=== PATIENT | female | born 1995 | race Caucasian/White ===

== ENCOUNTER → 2016-07-29 | Outpatient (CLI) | payer BC, OTHER ==
--- NOTE | 2016-07-29 12:24 | DIAGNOSTIC IMAGING REPORT ---
FLUOROSCOPIC GUIDED RIGHT SHOULDER ARTHROGRAM FLUOROSCOPY TIME: 5 seconds. A single image submitted. HISTORY: Right shoulder pain.. PROCEDURE: After obtaining written informed consent, the patient was placed supine on the fluoroscopy table. A suitable site for needle insertion was marked using fluoroscopic guidance. The right shoulder was prepped and draped in the usual sterile fashion. 1% lidocaine was used for skin, subcutaneous and deep soft tissue anesthesia. Under intermittent fluoroscopic guidance, a 22 gauge 2.5 inch spinal needle was inserted into the right glenohumeral joint. A total of 14 cc of one-to-one mixture of dilute Magnevist (0.1 cc in 10 cc saline) and Optiray 300 were injected. The needle was then removed. There were no apparent complications. The patient was transported to for further imaging. IMPRESSION: Fluoroscopic-guided right shoulder arthrogram without immediate complication. Total injected volume was 14 cc. MR portion of the examination will be dictated separately. Electronically signed by: Osei Zapien M.D. 07/29/2016 12:22 PM Dictated Date/Time: 07/29/2016 12:21 PM
--- NOTE | 2016-07-29 12:51 | DIAGNOSTIC IMAGING REPORT ---
MRI ARTHROGRAM OF THE RIGHT SHOULDER CLINICAL HISTORY: Right shoulder superior labral tear with impingement syndrome. TECHNIQUE: Following a fluoroscopically guided right shoulder arthrogram and utilizing a 1.5 Adeola magnet, multiplanar, multiecho imaging of the right shoulder was performed without intravenous contrast. COMPARISON STUDY: Right shoulder of the MRI May 17, 2016. FINDINGS: Distention of the right glenohumeral joint dilute contrast is adequate. Alignment of the right shoulder is anatomic. There is no marrow edema or marrow replacement. There is no full-thickness cuff tear. There is slight increased signal in distal supraspinatus and infraspinatus which suggests tendinopathy. No tendon retraction or muscular atrophy is present. There is abnormal signal and morphology of the posterior superior labrum consistent with a SLAP tear. The appearance is similar to MRI of May 17, 2016. Contrast extends along the proximal shaft of the right humerus and beyond the posterior fibers of the inferior glenohumeral ligament suggestive of a humeral avulsion of the inferior glenohumeral ligament. This is unchanged. The long head of biceps tendon is intact. No cartilage abnormality is present. IMPRESSION: 1. Findings consistent with a SLAP tear, similar in appearance to MRI of May 17, 2016. 2. Partial tear of the inferior glenohumeral ligament suggestive of a HAGL lesion. This is similar to prior exam. 3. Tendinopathy of supraspinatus and infraspinous with no full-thickness cuff tear. Electronically signed by: Rajendra Wooten M.D. 07/29/2016 12:49 PM Dictated Date/Time: 07/29/2016 12:41 PM
== END | disposition home or self-care (01) ==
LOC: C.MRIBC 10:58
PROVIDERS: ATTEND Physical Medicine & Rehabilitation Sports Medicine
DX: M75.41 Impingement syndrome of right shoulder (principal); S43.431A Superior glenoid labrum lesion of right shoulder, initial encounter; X58.XXXA Exposure to other specified factors, initial encounter

== ENCOUNTER → 2016-09-30 | Outpatient (CLI) | payer BC, OTHER ==
--- NOTE | 2016-09-30 11:09 | DIAGNOSTIC IMAGING REPORT ---
PELVIC ULTRASOUND CLINICAL HISTORY: Abnormal uterine bleeding. Unable to locate IUD strings. COMPARISON STUDY: Pelvic ultrasound August 25, 2015. TECHNIQUE: Transabdominal and transvaginal sonography of the pelvis was performed. FINDINGS: The uterus measures 6.9 x 3.8 x 4.6 cm. The intrauterine device appears appropriately positioned by sonography. Endometrial thickness is within normal limits, measuring approximately 6 mm. The right ovary measures 3.3 x 2.3 x 2.1 cm and the left measures 4 x 2.4 x 2.5 cm. Color flow was identified within each ovary. There is no free fluid. IMPRESSION: 1. Appropriately positioned IUD by sonography. 2. Unremarkable pelvic ultrasound. Normal endometrial thickness. Electronically signed by: Rajendra Wooten M.D. 09/30/2016 11:08 AM Dictated Date/Time: 09/30/2016 11:06 AM
== END | disposition home or self-care (01) ==
LOC: C.ULTRBC 10:24
PROVIDERS: ATTEND Family Medicine
DX: N93.9 Abnormal uterine and vaginal bleeding, unspecified (principal)